=== PATIENT | male | born 1945 | race Caucasian/White ===

== ENCOUNTER 2024-11-27 14:21 | Inpatient (IN) | payer MEDICARE, MEDICAID ==
[~2024-11-27] VITALS: Ht 170.2 cm; Wt 39.3 kg
[~2024-11-27 14:21] MED LIST: ASCO500T20 PO; ASPI-1160 PO; COR6 PO; FAMO20TA8 PO; LIP40 PO; MELA3TAB40 PO; MULT-230 MT; TRIMO RIGHTEYE
[2024-11-27] MEDS: ACETAMINOPHEN 1000MG/100ML 100 ML IV ONE (16:01)
[2024-11-27 17:56] LABS: BASOPHILS % 0.2 % (0.0-2.0); HEMATOCRIT. 30.5 % (42.0-52.0); HEMOGLOBIN. 9.9 g/dL (14.0-18.0); MEAN CORPUSCULAR HGB CONC 32.5 g/dL (31.0-37.0); MEAN CORPUSCULAR VOLUME 98.6 fL (80.0-94.0); MEAN PLATELET VOLUME 8.3 fl (7.4-10.4); MONOCYTES % 4.4 % (2.0-8.0); NEUTROPHILS % 84.4 % (40.0-76.0); PLATELET 294 x1000/uL (130-400); RED CELL DISTRIBUTION WIDTH 16.5 % (11.6-14.6); WHITE BLOOD COUNT 11.5 x1000/uL (4.5-11.0)
[2024-11-27 17:57] LABS: CHLORIDE 112 mEq/L (98-107); POTASSIUM 3.1 mEq/L (3.5-5.1); SODIUM 141 mEq/L (136-145)
[2024-11-27 17:58] LABS: CALCIUM 8.2 mg/dL (8.7-10.4); CARBON DIOXIDE 17 mEq/L (21-32)
[2024-11-27 18:03] LABS: CREATININE 0.6 mg/dL (0.6-1.3); GLUCOSE 91 mg/dL (70-105); UREA NITROGEN BLOOD 14 mg/dL (9-23)
[2024-11-27 18:04] LABS: TROPONIN I HIGH SENSITIVITY 30 ng/L (3.0-53)
[2024-11-27 18:05] LABS: ALANINE AMINOTRANSFERASE 36 IU/L (10-49); ALBUMIN 2.6 g/dL (3.2-4.8); ASPARTATE AMINOTRANSFERASE 193 IU/L (<34)
[2024-11-27 18:06] LABS: BILIRUBIN DIRECT 0.3 mg/dL (<=3.0); BILIRUBIN TOTAL 0.5 mg/dL (0.1-1.0); PROTEIN TOTAL 5.4 g/dL (6.0-8.3)
[2024-11-27 20:30] VITALS: BP 121/99; PULSE 90; RESP 18; TEMP 36.4; O2SAT 98
[2024-11-27 21:00] VITALS: BP 123/57; PULSE 95; RESP 18; TEMP 36.5
[2024-11-27 21:59] LABS: TROPONIN I HIGH SENSITIVITY 32 ng/L (3.0-53)
[2024-11-28] VITALS (19 sets, daily range): BP systolic 77–130; BP diastolic 48–94; PULSE 88–113; RESP 18–49; TEMP 35.7–36.7; O2SAT 93–100
[2024-11-28] MEDS ORDERED: ACETAMINOPHEN 325MG TABLET PO PRN
[2024-11-28] MEDS ORDERED: MELATONIN 3MG TABLET PO PRN
[2024-11-28] MEDS: MULTIVITAMINS,THER W-MINERALS TABLET PO SCH (07:08)
[2024-11-28] MEDS ORDERED: CLONIDINE 0.1MG TABLET PO PRN (07:30)
[2024-11-28] MEDS ORDERED: AZITHROMYCIN 500MG/250ML 250 ML IV SCH (07:30)
[2024-11-28] MEDS ORDERED: ONDANSETRON HCL 4MG/2ML INJ IV PRN (07:30)
[2024-11-28] MEDS ORDERED: IPRATROPIUM/ALBUTEROL 0.5-3(2.5)MG/3ML NEB HHN PRN (07:30)
[2024-11-28] MEDS ORDERED: DOCUSATE SODIUM 100MG CAPSULE PO PRN (07:30)
[2024-11-28] MEDS: LEVETIRACETAM 500MG PREMIX 100 ML IV SCH (08:49)
[2024-11-28] MEDS: FUROSEMIDE 40MG/4ML VIAL IVP SCH (08:49)
[2024-11-28] MEDS: LORAZEPAM 2MG/ML INJ IV PRN (08:50)
[2024-11-28] MEDS: CARVEDILOL 6.25 MG TABLET PO SCH (09:00)
[2024-11-28] MEDS: ASCORBIC ACID 500 MG TABLET PO SCH (09:00)
[2024-11-28] MEDS: ASPIRIN 81MG TABLET PO SCH (09:00)
[2024-11-28 10:00] LABS: BG BASE EXCESS -5.7 mmol/L (-2.0-3.0); BG CARBOXYHEMOGLOBIN 0.3 % (0.5-1.5); BG DEOXYHEMOGLOBIN 0.1 % (0.0-5.0); BG FRACTION INSPIRED OXYGEN 100; BG METHEMOGLOBIN 0.3 % (0.5-1.5); BG OXYGEN SATURATION 99.9 % (94.0-98.0); BG OXYHEMOGLOBIN 99.3 % (94.0-98.0); BG PCO2 25.1 mmHg (35.0-48.0); BG PH 7.448 (7.350-7.450); BG SAMPLE SITE RIGHT RADIAL; BG TOTAL HEMOGLOBIN 10.5 g/dL (13.5-17.5); BG VENT MODE MASK - NRB
[2024-11-28] MEDS: CEFTRIAXONE 1GM/50ML 50 ML IV SCH (11:28)
[2024-11-28 11:49] LABS: BASOPHILS % 0.2 % (0.0-2.0); HEMATOCRIT. 30.4 % (42.0-52.0); HEMOGLOBIN. 10.1 g/dL (14.0-18.0); LYMPHOCYTES % 8.7 % (20.0-50.0); MEAN CORPUSCULAR HEMOGLOBIN 31.6 pg (28.0-32.0); MEAN CORPUSCULAR HGB CONC 33.2 g/dL (31.0-37.0); MEAN CORPUSCULAR VOLUME 95.1 fL (80.0-94.0); MEAN PLATELET VOLUME 8.3 fl (7.4-10.4); MONOCYTES % 3.5 % (2.0-8.0); NEUTROPHILS % 87.6 % (40.0-76.0); PLATELET 348 x1000/uL (130-400); RED CELL DISTRIBUTION WIDTH 16.3 % (11.6-14.6); WHITE BLOOD COUNT 13.2 x1000/uL (4.5-11.0)
[2024-11-28 11:54] LABS: CHLORIDE 113 mEq/L (98-107); SODIUM 148 mEq/L (136-145)
[2024-11-28 11:55] LABS: CALCIUM 8.7 mg/dL (8.7-10.4); CARBON DIOXIDE 18 mEq/L (21-32); LACTIC ACID 2.1 mmol/L (0.4-2.0)
[2024-11-28 11:59] LABS: IRON 22 ug/dL (65-175)
[2024-11-28 12:00] LABS: CREATININE 0.6 mg/dL (0.6-1.3); GLUCOSE 69 mg/dL (70-105); UREA NITROGEN BLOOD 23 mg/dL (9-23)
[2024-11-28 12:01] LABS: TROPONIN I HIGH SENSITIVITY 27 ng/L (3.0-53)
[2024-11-28 12:02] LABS: ALANINE AMINOTRANSFERASE 44 IU/L (10-49); ALBUMIN 2.9 g/dL (3.2-4.8); ASPARTATE AMINOTRANSFERASE 215 IU/L (<34); BILIRUBIN DIRECT 0.3 mg/dL (<=3.0); BILIRUBIN TOTAL 0.5 mg/dL (0.1-1.0); CREATINE KINASE 303 IU/L (46-171); PHOSPHORUS 3.2 mg/dL (2.5-4.9); PROTEIN TOTAL 5.7 g/dL (6.0-8.3); TOTAL IRON BINDING CAPACITY 643 ug/dl (250-425)
[2024-11-28] MEDS: DOXYCYCLINE 100MG/100ML 100 ML IV SCH (12:15)
[2024-11-28 12:21] LABS: FOLIC ACID (FOLATE) SERUM 6.02 ng/mL (>5.38); VITAMIN B12 SERUM 1841 pg/mL (211-911)
[2024-11-28 12:22] LABS: FERRITIN 1607 ng/mL (22-322)
[2024-11-28 12:26] LABS: D-DIMER 3.72 mg/L FEU (<0.50); INR 2.3; PROTHROMBIN TIME 24.1 sec (9.6-11.0)
[2024-11-28] MEDS: IPRATROPIUM/ALBUTEROL 0.5-3(2.5)MG/3ML NEB HHN SCH (12:30)
[2024-11-28 12:41] LABS: POTASSIUM 2.8 mEq/L (3.5-5.1)
[2024-11-28 14:09] LABS: CLARITY URINE CLEAR (CLEAR); COLOR URINE DARK YELLOW (YELLOW); GLUCOSE URINE NEGATIVE (NEGATIVE); KETONES URINE 1+ (NEGATIVE); LEUKOCYTE ESTERASE URINE NEGATIVE (NEGATIVE); NITRITE URINE NEGATIVE (NEGATIVE); OCCULT BLOOD URINE NEGATIVE (NEGATIVE); PROTEIN URINE TRACE (NEGATIVE); SPECIFIC GRAVITY URINE 1.014 (1.005-1.030); UROBILINOGEN URINE 0.2 E.U./dL (0.2-1.0)
[2024-11-28] MEDS: KCL 20MEQ/100ML PREMIX 100 ML IV SCH ×2 (14:21→19:18)
[2024-11-28 14:27] LABS: *AMPHETAMINES SCREEN URINE NEGATIVE (NEGATIVE); *BARBITURATES SCREEN URINE PRESUMPTIVE POSITIVE (NEGATIVE); *BENZODIAZEPINES SCREEN URINE NEGATIVE (NEGATIVE); *COCAINE SCREEN URINE NEGATIVE (NEGATIVE); CANNABINOID URINE SCREEN NEGATIVE (NEGATIVE); ECSTASY MDMA SCREEN URINE NEGATIVE (NEGATIVE); METHADONE URINE SCREEN NEGATIVE (NEGATIVE); OPIATES URINE SCREEN NEGATIVE (NEGATIVE); PHENCYCLIDINE URINE SCREEN NEGATIVE (NEGATIVE)
[2024-11-28 14:51] LABS: SQUAMOUS EPITHELIAL CELL URINE NONE SEEN /lpf (RARE/1+)
[2024-11-28 14:52] LABS: BACTERIA URINE TRACE; RBC URINE 0-2 /hpf (0-2); WBC URINE 0-2 /hpf (0-2)
[2024-11-28] MEDS: ATORVASTATIN CALCIUM 40MG TABLET PO SCH (21:00)
[2024-11-28] MEDS: FAMOTIDINE 20MG TABLET PO SCH (21:00)
[2024-11-29] VITALS (8 sets, daily range): BP systolic 63–165; BP diastolic 1–87; PULSE 98–113; RESP 20–36; TEMP 34.5–36.7; O2SAT 90–99
[2024-11-29] MEDS ORDERED: KCL 20MEQ/100ML PREMIX 100 ML IV SCH (00:15)
[2024-11-29] MEDS: PHYTONADIONE 10MG/ML INJ SUBCUT NR (00:27)
[2024-11-29] MEDS ORDERED: NALOXONE HCL 0.4MG/ML VIAL IV PRN (10:30)
[2024-11-29] MEDS: MORPHINE SULFATE 2 MG/ML INJ (NOT FOR IM USE) IV PRN (10:55)
[2024-11-29 13:02] LABS: CARBON DIOXIDE 17 mEq/L (21-32); CHLORIDE 116 mEq/L (98-107); POTASSIUM 4.3 mEq/L (3.5-5.1); SODIUM 148 mEq/L (136-145)
[2024-11-29 13:03] LABS: CALCIUM 8.8 mg/dL (8.7-10.4)
[2024-11-29 13:06] LABS: PROTHROMBIN TIME 21.7 sec (9.6-11.0)
[2024-11-29 13:07] LABS: CREATININE 0.8 mg/dL (0.6-1.3); GLUCOSE 101 mg/dL (70-105)
[2024-11-29 13:08] LABS: UREA NITROGEN BLOOD 28 mg/dL (9-23)
[2024-11-29 13:10] LABS: PHOSPHORUS 2.1 mg/dL (2.5-4.9)
[2024-11-29 13:34] LABS: BASOPHILS % 0.3 % (0.0-2.0); EOSINOPHILS % 0.3 % (0.0-5.0); HEMATOCRIT. 35.6 % (42.0-52.0); HEMOGLOBIN. 11.7 g/dL (14.0-18.0); LYMPHOCYTES % 15.2 % (20.0-50.0); MEAN CORPUSCULAR HEMOGLOBIN 31.4 pg (28.0-32.0); MEAN CORPUSCULAR HGB CONC 32.7 g/dL (31.0-37.0); MEAN CORPUSCULAR VOLUME 95.9 fL (80.0-94.0); MEAN PLATELET VOLUME 8.6 fl (7.4-10.4); NEUTROPHILS % 80.2 % (40.0-76.0); PLATELET 345 x1000/uL (130-400); RED BLOOD CELL COUNT 3.71 mill/uL (4.7-6.1); RED CELL DISTRIBUTION WIDTH 16.9 % (11.6-14.6); WHITE BLOOD COUNT 3.5 x1000/uL (4.5-11.0)
== END 2024-11-30 00:12 | DRG 871 ==
LOC: ER 14:21 → 3WST 17:04 → EDBEDREQ 17:10 → EDBEDREQSVC 17:10 → EDBEDREQTM 17:10
PROVIDERS: ADMIT Internal Medicine; ATTEND Internal Medicine
DX: A41.9 Sepsis, unspecified organism (principal); J18.9 Pneumonia, unspecified organism; J96.00 Acute respiratory failure, unspecified whether with hypoxia or hypercapnia; E87.20 Acidosis, unspecified; G93.40 Encephalopathy, unspecified; L89.210 Pressure ulcer of right hip, unstageable; L89.150 Pressure ulcer of sacral region, unstageable; L89.220 Pressure ulcer of left hip, unstageable; L89.510 Pressure ulcer of right ankle, unstageable; L89.620 Pressure ulcer of left heel, unstageable; L89.610 Pressure ulcer of right heel, unstageable; Z20.822 Contact with and (suspected) exposure to COVID-19; Z66 Do not resuscitate; Z51.5 Encounter for palliative care; D64.9 Anemia, unspecified; E87.6 Hypokalemia; I25.10 Atherosclerotic heart disease of native coronary artery without angina pectoris; I48.91 Unspecified atrial fibrillation; I73.9 Peripheral vascular disease, unspecified; F03.90 Unspecified dementia, unspecified severity, without behavioral disturbance, psychotic disturbance, mood disturbance, and anxiety; I50.9 Heart failure, unspecified; Z74.01 Bed confinement status; Z86.73 Personal history of transient ischemic attack (TIA), and cerebral infarction without residual deficits
CPT/HCPCS: 36415; 36600; 71045; 80048; 80076; 80305; 81003; 82375; 82550; 82553; 82607; 82728; 82746; 82805; 83540; 83550; 83605; 83735; 83880; 84100; 84145; 84484; 85025; 85379; 87426; 87804; 93005; 94640; 99291; A4606; A6261; J0696; J1940; J1953; J2060; J2270; J3430; J3480; J3490; J0131